=== PATIENT | male | born 1985 | race Caucasian/White ===

== ENCOUNTER 2016-08-17 17:16 | Emergency (ER) | payer BC ==
[~2016-08-17] VITALS: Ht 180.3 cm; Wt 88.5 kg
[2016-08-17] MEDS ORDERED: GABAPENTIN600 MG ORAL (17:33)
[2016-08-17] MEDS ORDERED: [UNRECOGNIZED DRUG - OTHER] (17:33)
[2016-08-17] MEDS ORDERED: IBUPROFEN600 MG ORAL (18:24)
[2016-08-17 18:32] VITALS: BP 108/54
--- NOTE | 2016-08-17 22:25 | Emergency Room Report ---
History of Present Illness General Chief Complaint: Lower Extremity Injury Source: Patient Present Illness HPI The patient is a 30-year-old male presenting for left ankle pain. The patient states that he fell off a skateboard today and felt the left ankle folded underneath him. Pain is described as a 7/10 dull ache and does not radiate. It worse with walking. He denies previous injury to the ankle. He denies other symptoms including numbness or tingling Allergies: Coded Allergies: No Known Allergies (Unverified , 08/17/16) Patient History Past Medical History: see triage record Pertinent Family History: none Reviewed Nursing Documentation: PMH: Agreed, PSxH: Agreed Nursing Documentation-PMH Past Medical History: No History, Except For Review of Systems All Other Systems: negative except mentioned in HPI Physical Exam Vital Signs Date Time Temp Pulse Resp B/P Pulse Ox O2 Delivery O2 Flow Rate FiO2 08/17/16 17:26 99.0 87 18 108/54 98 Room Air Sp02 EP Interpretation: reviewed, normal General Appearance: no apparent distress, alert, GCS 15, non-toxic Head: normocephalic, atraumatic Eyes: bilateral eye PERRL, bilateral eye normal inspection ENT: hearing grossly normal, normal pharynx, no angioedema, normal voice Neck: full range of motion, supple/symm/no masses Respiratory: chest non-tender, lungs clear, normal breath sounds, speaking full sentences Musculoskeletal: back normal, normal range of motion, no calf tenderness, tender - lateral L ankle Neurologic: alert, oriented x3, responsive, motor strength/tone normal, sensory intact, speech normal Psychiatric: judgement/insight normal, memory normal, mood/affect normal, no suicidal/homicidal ideation Skin: normal color, no rash, warm/dry, well hydrated Lymphatic: no adenopathy Procedures Splinting Splinting : Consent: Verbal Location: L ankle Pre-Made Type: ROSALVA wrap Pre-Proc Neuro Vasc Exam: normal Post-Proc Neuro Vasc Exam: normal Patient Tolerated: Well Medical Decision Making PA Attestation Dr. Portillo is my supervising physician. Patient management was discussed with my supervising physician Diagnostic Impression: Primary Impression: Left ankle sprain Qualified Codes: S93.402A - Sprain of unspecified ligament of left ankle, initial encounter ER Course The patient is a 30-year-old male presenting for left ankle pain. Ddx considered include but not limited to sprain/strain, fracture, contusion Physical exam: Vitals within normal limits. No apparent distress Left ankle: There is tenderness to palpation and edema over the left lateral malleolus. Limited active range of motion. Sensation intact to light touch. X-ray of the left ankle is unremarkable Left ankle placed in ROSALVA wrap and the patient is provided crutches. ER precautions are given. Patient given prescription for Motrin and will follow up with primary care physician. Other X-Ray Diagnostic Results # of Views/Limited Vs Complete: 3 View Interpretation: no fractures, no dislocation, no soft tissue swelling Indication: Pain Impression: No acute disease Date Electronically Signed: Aug 17, 2016 Time Electronically Signed: 22:24 Interpreting ER Physician: Dr. Lindsey JACOBS Scribe Text I am acting as scribe for my supervising physician. My supervising physician's interpretation of the L ankle xrays are there are no fractures, dislocations or soft tissue swelling. Last Vital Signs Date Time Temp Pulse Resp B/P Pulse Ox O2 Delivery O2 Flow Rate FiO2 08/17/16 17:26 99.0 87 18 108/54 98 Room Air Status: improved Disposition: HOME, SELF-CARE Condition: Improved Scripts Ibuprofen* (MOTRIN*) 600 Mg Tablet 600 MG ORAL Q8H Y for For Pain, #30 TAB 0 Refills Prov: AVINASH CARRENO 08/17/16 Patient Instructions: Ankle Sprain Additional Instructions: I discussed my findings with the patient. All questions and concerns have been answered. Treatment and medication compliance have been addressed. I advised the patient that they need to follow up with PMD in 3-5 days. Return to ED if pain remains or worsens, numbness or tingling occurs, new rash is noticed, fever is noticed, or if needed for any reason. Patient verbalized understanding of discharge instructions. AVINASH CARRENO Aug 17, 2016 22:24
--- NOTE | 2016-08-18 12:56 | Diagnostic Imaging Report ---
Indication: PAIN Technique: 3 views of the left ankle Comparison: none Findings: No acute fractures. No dislocations. Joint spaces are preserved. Normal mineralization. No radiopaque foreign body. Impression: Negative
== END 2016-08-17 18:32 | disposition home or self-care (01) ==
LOC: EMR 17:40
DX: S93.402A Sprain of unspecified ligament of left ankle, initial encounter (principal); W19.XXXA Unspecified fall, initial encounter; Y93.51 Activity, roller skating (inline) and skateboarding; Y92.89 Other specified places as the place of occurrence of the external cause
CPT/HCPCS: 29540; 99283